=== PATIENT | male | born 1950 | race African-American/Black ===

== ENCOUNTER 2022-03-13 13:35 | Emergency (ER) | payer SELFPAY ==
[~2022-03-13] VITALS: Ht 175.3 cm; Wt 87.0 kg
[2022-03-13] MEDS ORDERED: IBUPROFEN 600MG TABLET PO ONE (14:45)
[2022-03-13] MEDS ORDERED: IBUP-2029 MT (16:08)
[2022-03-13 17:59] LABS: BASOPHILS % 0.5 % (0.0-2.0); EOSINOPHILS % 0.2 % (0.0-5.0); HEMOGLOBIN. 11.6 g/dL (14.0-18.0); LYMPHOCYTES % 25.7 % (20.0-50.0); MEAN CORPUSCULAR HEMOGLOBIN 30.6 pg (28.0-32.0); MEAN CORPUSCULAR VOLUME 95.3 fL (80.0-94.0); MEAN PLATELET VOLUME 8.9 fl (7.4-10.4); MONOCYTES % 8.7 % (2.0-8.0); NEUTROPHILS % 64.9 % (40.0-76.0); PLATELET 195 x1000/uL (130-400); RED BLOOD CELL COUNT 3.78 mill/uL (4.7-6.1)
[2022-03-13 18:06] LABS: CHLORIDE 112 mEq/L (98-107)
[2022-03-14 08:28] VITALS: BP 140/80
== END 2022-03-14 10:19 | disposition home or self-care (01) ==
LOC: ER 14:13
DX: M79.18 Myalgia, other site (principal); M25.571 Pain in right ankle and joints of right foot; M25.572 Pain in left ankle and joints of left foot; Z59.00 Homelessness unspecified; I10 Essential (primary) hypertension; Z85.6 Personal history of leukemia
CPT/HCPCS: 36415; 73600; 80053; 85025; 99285

== ENCOUNTER 2022-03-16 16:27 | Emergency (ER) | payer MEDICARE, MEDICAID ==
[~2022-03-16] VITALS: Ht 180.3 cm; Wt 77.0 kg
[~2022-03-16 16:27] MED LIST: IBUP-2029 MT
[2022-03-16] MEDS ORDERED: ACETAMINOPHEN 325MG TABLET PO ONE (16:45)
[2022-03-18 12:48] VITALS: BP 129/91
== END 2022-03-18 16:19 | disposition home or self-care (01) ==
LOC: ER 16:27
DX: M25.572 Pain in left ankle and joints of left foot (principal); I10 Essential (primary) hypertension; Z85.6 Personal history of leukemia
CPT/HCPCS: 99285